=== PATIENT | male | born 1970 | race Caucasian/White ===

== ENCOUNTER 2017-07-12 07:32 | Emergency (ER) | payer OTHER ==
[~2017-07-12] VITALS: Ht 170.2 cm; Wt 78.0 kg
[2017-07-12 07:35] VITALS: BP 126/76
[2017-07-12] MEDS ORDERED: HYDROmorphone 1 MG/ML AMP ONE (07:49)
[2017-07-12] MEDS: HYDROmorphone 1 MG/ML AMP IVP ONE (07:51)
[2017-07-12] MEDS: NACL 0.9% 1,000 ML IV ONE (08:39)
[2017-07-12 09:51] VITALS: BP 111/81
== END 2017-07-12 09:51 | disposition home or self-care (01) ==
LOC: MED 07:32
DX: M54.42 Lumbago with sciatica, left side (principal)
CPT/HCPCS: 72131; 96361; 96374; 99284; J1170; J7030